=== PATIENT | female | born 1995 | race Caucasian/White ===

== ENCOUNTER 2020-08-04 15:32 | Emergency (ER) | payer OTHER, SELFPAY ==
[2020-08-04] MEDS ORDERED: Bacitracin 1 PK ONE (15:52)
[2020-08-04] MEDS ORDERED: Sulfameth/Trimethoprim DS 800-160mg TAB ONE (16:07)
== END 2020-08-04 16:28 | disposition home or self-care (01) ==
LOC: BURERS 15:32
DX: S91.312A Laceration without foreign body, left foot, initial encounter (principal); W01.198A Fall on same level from slipping, tripping and stumbling with subsequent striking against other object, initial encounter
CPT/HCPCS: 99282